=== PATIENT | male | born 1930 | race Caucasian/White ===

== ENCOUNTER 2018-04-10 12:40 | Emergency (ER) | payer MEDICARE, BC ==
[~2018-04-10] VITALS: Ht 190.5 cm; Wt 90.7 kg
[~2018-04-10 12:40] MED LIST: ALPHA LIPOIC A100 MG PO; ALPHA LIPOIC A200 MG PO; ALPHA LIPOIC A300 MG PO; ATORVASTATIN CA80 MG PO; COUMADIN2.5 MG PO; DIGOXIN125 MCG PO; FUROSEMIDE40 MG PO; LIPITOR40 MG PO; MAGNESIUM400 M1 PO; METOPROLOL SUC100 MG PO; METOPROLOL SUCC50 MG PO; POTASSIUM CHLO10 ME1 PO; POTASSIUM CHLO10 MEQ PO; POTASSIUM GLUC500 MG PO; VERAPAMIL HCL40 MG PO; VITAMIN D2000 UNI1 PO; WARFARIN SODIUM5 MG PO
== END 2018-04-10 14:08 | disposition home or self-care (01) ==
LOC: ED 12:40
DX: S60.211A Contusion of right wrist, initial encounter (principal); I10 Essential (primary) hypertension; I48.91 Unspecified atrial fibrillation; Z87.891 Personal history of nicotine dependence; Z79.899 Other long term (current) drug therapy; W22.8XXA Striking against or struck by other objects, initial encounter
CPT/HCPCS: 73110; 85025; 85610; 85730; 99283